=== PATIENT | male | born 2000 | race Caucasian/White ===

== ENCOUNTER 2022-07-11 17:29 | Emergency (ER) | payer OTHER ==
[2022-07-11 17:38] VITALS: BP 135/69; RESP 20; BMI 29.0
[2022-07-11] MEDS ORDERED: ACETAMINOPHEN 500 MG TABLET (FP) PO ONE (18:02)
[2022-07-11] MEDS ORDERED: ACETAMINOPHEN 500 MG TABLET (FP) ONE (18:05)
[2022-07-11 18:38] VITALS: PULSE 82; TEMP 100.1
== END 2022-07-11 18:38 | disposition home or self-care (01) ==
LOC: JER 17:29
DX: J09.X2 Influenza due to identified novel influenza A virus with other respiratory manifestations (principal)
CPT/HCPCS: 0241U-QW; 99283-25